=== PATIENT | male | born 1990 | race Caucasian/White ===

== ENCOUNTER 2018-09-01 00:37 | Emergency (ER) | payer BC, OTHER ==
[~2018-09-01] VITALS: Ht 182.9 cm; Wt 83.9 kg
--- NOTE | 2018-09-01 01:00 | NUR ---
BIB FAMILY FOR C/O ABD PAIN, N/V. PMH: COLECYSTECTOMY. REPORTED" HAVE RECENTLY SWITCHED TO A NEW ATB FOR ACNE. IV LINE STABLISHE. CLOOD DRAWN VSS. WILL CONT TO MONITOR,
[2018-09-01] MEDS ORDERED: ONDANSETRON HCL/PF 4 MG/2 ML VIAL ONE (01:02)
[2018-09-01] MEDS: ONDANSETRON HCL/PF 4 MG/2 ML VIAL IVP ONE (01:10)
[2018-09-01] MEDS ORDERED: HYDROMORPHONE 1 MG/1 ML DISP.SYRIN ONE ×2 (01:11→02:31)
[2018-09-01 01:18] LABS: BASOPHILS # (AUTO) 0.1 /CMM (0.0-0.2); BASOPHILS % (AUTO) 0.6 % (0.0-2.0); EOSINOPHILS % (AUTO) 2.6 % (0.0-6.0); HEMATOCRIT 51 % (39-51); HEMOGLOBIN 17.5 g/dL (13.5-17.5); LYMPHOCYTES % (AUTO) 41.5 % (20.0-44.0); MEAN CORPUSCULAR HGB CONC 34 g/dl (31.0-36.0); MEAN CORPUSCULAR VOLUME 89 fL (80-96); MONOCYTES # (AUTO) 0.8 /CMM (0.1-1.30); MONOCYTES % (AUTO) 6.6 % (2.0-12.0); NEUTROPHILS # (AUTO) 5.9 /CMM (1.8-8.9); NEUTROPHILS % (AUTO) 48.7 % (43.0-81.0); PLATELET COUNT (AUTO) 266 /CMM (150-450); RED BLOOD CELL COUNT(AUTO) 5.72 MIL/uL (4.5-6.0); WHITE BLOOD COUNT (AUTO) 12.1 K/uL (4.3-11.0)
[2018-09-01] MEDS: HYDROMORPHONE 1 MG/1 ML DISP.SYRIN IV ONE ×2 (01:19→02:38)
[2018-09-01] MEDS: IV NS 0.9% 1,000 ML BAG IV ONE (01:19)
[2018-09-01 01:31] LABS: CALCIUM, SERUM 9.6 mg/dL (8.5-10.1); CARBON DIOXIDE 24 mmol/L (21-32); CHLORIDE 104 mmol/L (98-107); CREATININE 1.3 mg/dL (0.6-1.3); GLUCOSE 157 mg/dL (74-106); POTASSIUM 3.6 mmol/L (3.5-5.1); SODIUM SERUM 142 mmol/L (136-145); UREA NITROGEN, BLOOD 17 mg/dL (7-18)
[2018-09-01 01:42] LABS: APPEARANCE,URINE Cloudy (CLEAR); BILIRUBIN,URINE SMALL (NEGATIVE); BLOOD, URINE Large Ery/uL (NEGATIVE); COLOR,URINE Brown (YELLOW); KETONES,URINE Negative (NEGATIVE); LEUKOCYTE ESTERASE ,URINE Negative (NEGATIVE); NITRITE, URINE Negative (NEGATIVE); PROTEIN,URINE 100 mg/dl (NEGATIVE); UGLUCOSE Negative (NEGATIVE); UROBILINOGEN,URINE 0.2 EU/dL (0.2)
[2018-09-01] MEDS ORDERED: IOHEXOL-300 100 ML VIAL IV ONE (01:48)
[2018-09-01 01:50] LABS: ALANINE AMINOTRANSFERASE 136 U/L (12-78); ALBUMIN 4.4 g/dL (3.4-5.0); ALKALINE PHOSPHATASE 52 U/L (46-116); ASPARTATE AMINOTRANSFERASE 39 U/L (15-37); BILIRUBIN,DIRECT 0.1 mg/dL (0.0-0.2); BILIRUBIN,TOTAL 0.7 mg/dL (0.2-1.0); LIPASE 125 U/L (73-393); TOTAL PROTEIN, SERUM 7.6 g/dL (6.4-8.2)
[2018-09-01 02:03] LABS: BACTERIA,URINE Few /HPF (None Seen); RBC,URINE TOO NUMEROUS TO COUN /HPF (0-2); SQUAMOUS EPITHELIAL CELL,UR Rare /HPF (None Seen)
--- NOTE | 2018-09-01 02:47 | NUR ---
RSTING IN BED AWAKE AND ALERT,. FAMILY AT THE BED SIDE. ON CONT MONITORING
--- NOTE | 2018-09-01 03:30 | NUR ---
resting in bed w/ family at the bed side,
[2018-09-01] MEDS ORDERED: TAMSULOSIN 0.4 MG CAP.SR.24H ONE (04:05)
[2018-09-01] MEDS ORDERED: KETOROLAC TROMETHAMINE INJ 30 MG/ML VIAL ONE (04:05)
[2018-09-01] MEDS: TAMSULOSIN 0.4 MG CAP.SR.24H PO ONE (04:32)
[2018-09-01] MEDS: KETOROLAC TROMETHAMINE INJ 30 MG/ML VIAL IV ONE (04:32)
--- NOTE | 2018-09-01 05:05 | NUR ---
Patient discharged to home in stable condition. Written and verbal after care instructions given. Patient verbalizes understanding of instruction.
[2018-09-01 05:07] VITALS: BP 118/75
== END 2018-09-01 05:07 | disposition home or self-care (01) ==
LOC: ER 00:39
DX: N20.1 Calculus of ureter (principal); K80.50 Calculus of bile duct without cholangitis or cholecystitis without obstruction; Z98.890 Other specified postprocedural states
CPT/HCPCS: 36415; 71045; 74177; 80048; 80076; 81001; 83690; 84484; 85025; 96361; 96374; 96375; 96376; 99284; J1170 ×2; J1885; J2405; J7030; Q9967; 81000-TC